=== PATIENT | male | born 1990 | race Hispanic/Latino ===

== ENCOUNTER 2023-05-10 19:05 | Emergency (ER) | payer BC ==
[~2023-05-10] VITALS: Ht 165.1 cm; Wt 76.2 kg
[2023-05-10 19:09] VITALS: BP 147/89; PULSE 98; RESP 20
== END 2023-05-11 01:30 | disposition left against medical advice (07) ==
LOC: EDH 19:05
DX: R07.0 Pain in throat (principal); Z53.21 Procedure and treatment not carried out due to patient leaving prior to being seen by health care provider